=== PATIENT | male | born 1965 | race Caucasian/White ===

== ENCOUNTER 2021-12-26 19:12 | Inpatient (IN) | payer MEDICAID ==
[~2021-12-26] VITALS: Ht 170.2 cm; Wt 76.7 kg
--- NOTE | 2021-12-26 19:23 | NUR ---
LILI Flores FROM [facility] FOR OXYGEN DESATURATION. ARRIVED BY BVM BAGGING TO [facility] AND PLACED ON ER VENT. PT AWAKE AND ALERT X 0 AT BASELINE NO RESPONSE TO STIMULI GCS . PLACED ON MONITOR AND PT TACHYCARDIC BP WNL AND O2 99%. WAS AT BEDSIDE FOR EVAL.
--- NOTE | 2021-12-26 19:26 | NUR ---
18G LH. BLOOD DRAWN AND SENT TO LAB
[2021-12-26] MEDS ORDERED: CEFEPIME 1 GM in IV D5W 50 ML IV ONE (19:30)
[2021-12-26] MEDS ORDERED: VANCOMYCIN 1 GM in IV D5W 250 ML IV ONE (19:30)
--- NOTE | 2021-12-26 19:30 | NUR ---
URINE COLLECTED AND SENT TO LAB
--- NOTE | 2021-12-26 19:37 | NUR ---
XRAY AT BEDSIDE
--- NOTE | 2021-12-26 19:44 | NUR ---
FIO2 80% TV 550 RATE 18 PEEP5
--- NOTE | 2021-12-26 19:49 | NUR ---
RT pt placed on mechanical vent with settings from maikel patrick. pt suctioned via trach. tolerating settings at this time. ambu bag at bedside. clear breath sounds throughout. vent plugged in to red outlet. alarms on and audible. trach secure and patent.
[2021-12-26] MEDS ORDERED: VANCOMYCIN 1 GM VIAL ONE (19:57)
[2021-12-26 20:13] LABS: CALCIUM, SERUM 9.5 mg/dL (8.5-10.1); CARBON DIOXIDE 20 mmol/L (21-32); CHLORIDE 104 mmol/L (98-107); CREATININE 0.9 mg/dL (0.6-1.3); GLUCOSE 129 mg/dL (74-106); POTASSIUM 3.9 mmol/L (3.5-5.1); SODIUM SERUM 139 mmol/L (136-145); UREA NITROGEN, BLOOD 15 mg/dL (7-18)
[2021-12-26 20:25] LABS: ALANINE AMINOTRANSFERASE 42 U/L (12-78); ALBUMIN 3.8 g/dL (3.4-5.0); ALKALINE PHOSPHATASE 126 U/L (46-116); ASPARTATE AMINOTRANSFERASE 17 U/L (15-37); BILIRUBIN,DIRECT 0.3 mg/dL (0.0-0.2); BILIRUBIN,TOTAL 0.9 mg/dL (0.2-1.0); TOTAL PROTEIN, SERUM 8.1 g/dL (6.4-8.2)
[2021-12-26] MEDS ORDERED: IV NS 0.9% 2,000 ML IV ONE (20:30)
[2021-12-26 20:34] LABS: BASOPHILS # (AUTO) 0.1 K/uL (0.0-0.2); BASOPHILS % (AUTO) 0.3 % (0.0-2.0); EOSINOPHILS % (AUTO) 1.7 % (0.0-6.0); HEMATOCRIT 47 % (39-51); HEMOGLOBIN 15.6 g/dL (13.5-17.5); LYMPHOCYTES # (AUTO) 1.5 K/uL (0.8-4.8); LYMPHOCYTES % (AUTO) 6.4 % (20.0-44.0); MEAN CORPUSCULAR HGB CONC 33 g/dl (31.0-36.0); MEAN CORPUSCULAR VOLUME 96 fL (80-96); MONOCYTES # (AUTO) 0.7 K/uL (0.1-1.30); NEUTROPHILS # (AUTO) 21.3 K/uL (1.8-8.9); NEUTROPHILS % (AUTO) 88.6 % (43.0-81.0); PLATELET COUNT (AUTO) 317 K/uL (150-450); RED BLOOD CELL COUNT(AUTO) 4.91 MIL/uL (4.5-6.0)
[2021-12-26 20:35] LABS: BILIRUBIN,URINE NEGATIVE (NEGATIVE); COLOR,URINE YELLOW (YELLOW); LEUKOCYTE ESTERASE ,URINE NEGATIVE (NEGATIVE); NITRITE, URINE NEGATIVE (NEGATIVE); PROTEIN,URINE NEGATIVE (NEGATIVE); UGLUCOSE NEGATIVE (NEGATIVE); UROBILINOGEN,URINE 0.2 EU/dL (0.2)
--- NOTE | 2021-12-26 20:46 | NUR ---
RT AT BEDSIDE FOR ABG
--- NOTE | 2021-12-26 20:53 | NUR ---
ANDREW COLLECTED AND SENT TO LAB
[2021-12-26 20:59] LABS: ABG BASE EXCESS -7.4 mmol/L; ABG PCO2 30.3 mmHg (35.0-45.0); ABG PH 7.356 (7.350-7.450); ABG PO2 357.2 mmHg (75.0-100.0); COHb 0.1 % (0.5-1.5); MetHb 0.7 % (0.0-1.5); O2Hb 98.7 % (94.0-97.0); SITE, ABG Right Radial; VENT MODE, BG AC 18 550 80% +5
[2021-12-26 22:10] LABS: BAND % (MANUAL) 13 % (0.0-5.0); EOSINOPHILS % (MANUAL) 5 % (0-4); LYMPHOCYTES % (MANUAL) 5 % (16-48); MONOCYTES % (MANUAL) 3 % (0-11.0); NEUTROPHILS % (MANUAL) 74 (42-76)
[2021-12-26] MEDS ORDERED: Z GUARD REMEDY 4 OZ OINT TP PRN (22:30)
[2021-12-26] MEDS ORDERED: MORPHINE SULFATE INJ 2 MG/ML DISP.SYRIN IV PRN (22:30)
[2021-12-26] MEDS ORDERED: ONDANSETRON HCL/PF 4 MG/2 ML VIAL IVP PRN (22:30)
[2021-12-26] MEDS ORDERED: ALBUTEROL FS 2.5 MG/0.5 ML VIAL.NEB NEB PRN (22:30)
[2021-12-26] MEDS ORDERED: hydrALAZINE HCL IV 20 MG VIAL IV PRN (22:30)
--- NOTE | 2021-12-26 23:08 | NUR ---
room [id number]
--- NOTE | 2021-12-26 23:17 | NUR ---
report given to gracie lara for ronn
--- NOTE | 2021-12-26 23:47 | NUR ---
SPUTUM SAMPLE COLLECTED FOR CULTURE AND SENT TO LAB
[2021-12-27] MEDS ORDERED: SODIUM BICARBONATE SYR 50 MEQ/50 ML DISP.SYRIN IV ONE
[2021-12-27] MEDS ORDERED: IPRATROPIUM/ALBUTEROL INHALER IH SCH
--- NOTE | 2021-12-27 00:29 | NUR ---
PT TRANSPORTED TO ROOM 104 ON CARDIAC PER [facility] SIN STABLE CONDITION
[2021-12-27] MEDS: IV NS 0.9% 1,000 ML IV SCH ×2 (00:44→17:42)
--- NOTE | 2021-12-27 01:00 | NUR ---
RN OPENING NOTE RECEIVED PT FROM ER NURSE LINO. PT ARRIVED VIA GURNEY AND ADMITTED IN [place] WITH THE DIAGNOSIS OF PNEUMONIA. PT IS VENT DEPENDENT, TOLERATING SETTINGS WELL UPON INITIAL ASSESSMENT. NO S/SX OF ACUTE RESPI DISTRESS AT THIS TIME, NO SOB. BREATHING IS EVEN AND UNLABORED. IV ACCESS IS NOTED IN LEFT HAND, #18g INFUSING NS AT 80 CC/HR. PT HAS RASHES ALL OVER HIS BODY: TUMMY, LOWER LEGS AND BACK AREA. REDNESS NOTED ON HIS LEFT CHEEK. SKIN EXCORIATION NOTED ON HIS SACRUM. FEET ARE CONTRACTED. ALL PHOTOS TAKEN AND PLACED IN PT'S CHART. PT HAS PEG TUBE, INTACT, AND FLUSHES WELL. VS UPON ARRIVAL ARE FOLLOW: TEMP 100.5 HR 119 RR 28 02 100 BP 126/61 GAVE PT TYLENOL ORDERED AND A COLD BATH TO LOWER DOWN PT'S TEMP. WILL REASSESS IN 30 MINUTES. ALL SAFETY MEASURES IN PLACE: BED LOCKED IN LOW POSITION, BED ALARM ON, SR UP X2, CALL LIGHT WITHIN REACH. GAVE PT A COLD BATH AND TYLENOL VIA PEG TUBE.
[2021-12-27] MEDS: ACETAMINOPHEN 325 MG TABLET PO PRN (01:26)
[2021-12-27] MEDS: IPRATROPIUM NEB FS 0.5 MG/2.5 ML AMPUL.NEB IH SCH ×4 (02:56→20:42)
[2021-12-27] MEDS: ALBUTEROL FS 2.5 MG/0.5 ML VIAL.NEB NEB SCH ×4 (02:56→20:42)
[2021-12-27 04:00] VITALS: BP 91/44
[2021-12-27 05:14] LABS: ABG BASE EXCESS -2.7 mmol/L; ABG OXYGEN SATURATION 98.6 % (92.0-98.5); ABG PH 7.429 (7.350-7.450); ABG PO2 159.2 mmHg (75.0-100.0); AaDO2 161.3 mmHg; COHb 0.2 % (0.5-1.5); MetHb 0.4 % (0.0-1.5); SITE, ABG Right Radial; VENT MODE, BG AC 18 550 50% +5
[2021-12-27 05:56] LABS: BASOPHILS % (AUTO) 0.2 % (0.0-2.0); EOSINOPHILS % (AUTO) 0.3 % (0.0-6.0); HEMATOCRIT 38 % (39-51); HEMOGLOBIN 12.8 g/dL (13.5-17.5); LYMPHOCYTES # (AUTO) 1.4 K/uL (0.8-4.8); MEAN CORPUSCULAR HGB CONC 34 g/dl (31.0-36.0); MEAN CORPUSCULAR VOLUME 95 fL (80-96); MONOCYTES % (AUTO) 5.5 % (2.0-12.0); NEUTROPHILS # (AUTO) 15.2 K/uL (1.8-8.9); PLATELET COUNT (AUTO) 212 K/uL (150-450); RED BLOOD CELL COUNT(AUTO) 4.03 MIL/uL (4.5-6.0); WHITE BLOOD COUNT (AUTO) 17.7 K/uL (4.3-11.0)
--- NOTE | 2021-12-27 06:35 | NUR ---
RN NOTE PT FEVER WENT DOWN TO 98.8. ALL OTHER VS STABLE. TELE MONITOR SHOWS SR, O2 SAT >97%. NO SIGNS OF ACUTE RESPI DISTRESS. WILL ENDORSE TO AM SHIFT NURSE FOR HI.
[2021-12-27 06:41] LABS: CALCIUM, SERUM 8.5 mg/dL (8.5-10.1); CREATININE 0.8 mg/dL (0.6-1.3); PHOSPHORUS 2.6 mg/dL (2.5-4.9); POTASSIUM 3.5 mmol/L (3.5-5.1); TOTAL PROTEIN, SERUM 6.6 g/dL (6.4-8.2)
[2021-12-27 08:00] VITALS: BP 110/46
[2021-12-27] MEDS ORDERED: BISA10SU11 RC (08:07)
[2021-12-27] MEDS ORDERED: LEVE1000 GT (08:07)
[2021-12-27] MEDS ORDERED: OMEG1600 GT (08:07)
[2021-12-27] MEDS ORDERED: HEPARIN SUBCUT (08:07)
[2021-12-27] MEDS ORDERED: CLON0.1T GT (08:07)
[2021-12-27] MEDS ORDERED: MAGN400O6 GT (08:07)
[2021-12-27] MEDS ORDERED: NA P133E RC (08:07)
[2021-12-27] MEDS ORDERED: LACT250L14 GT (08:08)
[2021-12-27] MEDS: HEPARIN SODIUM, PORCINE 5000 UNITS/1 ML VIAL SQ SCH ×2 (09:02→20:26)
[2021-12-27] MEDS: VANCOMYCIN 1 GM in IV D5W 250ml IV SCH ×3 (09:33→23:36)
[2021-12-27 12:00] VITALS: BP 106/52
[2021-12-27 12:09] LABS: BAND % (MANUAL) 20 % (0.0-5.0); LYMPHOCYTES % (MANUAL) 8 % (16-48); MONOCYTES % (MANUAL) 8 % (0-11.0); NEUTROPHILS % (MANUAL) 64 (42-76)
[2021-12-27] MEDS: CEFEPIME 2 GM in IV D5W 100 ML IV SCH ×2 (12:31→20:24)
[2021-12-27] MEDS: JEVITY 1.2 CAL 1,000 ML BOTTLE GT PRN (15:18)
[2021-12-27 16:00] VITALS: BP 96/42
--- NOTE | 2021-12-27 19:01 | NUR ---
RN NOTE PT RESTING IN BED, TRACH IN PLACE WITH VENT SETTINGS TOLERATED WELL. PT OBTUNDED. INCONTINENT. WITH IV ACCESS ON L HAND G18. IVF NS@80/HR, TOLERATING WELL. DUE MEDS GIVEN. AM/PM CARE RENDERED. WILL CONT TO MONITOR.
[2021-12-27 20:00] VITALS: BP 125/74
--- NOTE | 2021-12-27 20:00 | NUR ---
RN OPENING NOTE RECEIVED PT IN BED NON VERBAL . ON VENTILATOR DEPENDENT AC SETTINGS WELL TOLERATED BY PTS. V/S STABLE AFEBRILE NO SOB NO DISTRESS NOTED . BREATHING IS EVEN AND UNLABORED. IV ACCESS IS NOTED IN LEFT HAND, #18g INFUSING NS AT 80 CC/HR. RIGHT AC g20 INSERTED INTACT AND PATENT . PT HAS PEG TUBE, JEVITY AT 65CC/HR INFUSING WELL .TURNED AND REPOSITION , SUCTION SECRETION Q 2 HRS AND PRN . PTS CONTINUE ON IV ATB NO ASE, ALL NEEDS ATTENDED TOO CALL LIGHT WITHIN REACH WILL CONTINUE TO MONITOR PTS.
[2021-12-28] VITALS: BP 134/57
[2021-12-28] MEDS: IPRATROPIUM NEB FS 0.5 MG/2.5 ML AMPUL.NEB IH SCH ×4 (01:41→20:12)
[2021-12-28] MEDS: ALBUTEROL FS 2.5 MG/0.5 ML VIAL.NEB NEB SCH ×4 (01:41→20:12)
[2021-12-28 04:00] VITALS: BP 132/65
[2021-12-28] MEDS: CEFEPIME 2 GM in IV D5W 100 ML IV SCH ×3 (04:48→20:29)
--- NOTE | 2021-12-28 06:19 | NUR ---
manager of internal otes Pts remains in bed on tele vent trached pts settings tolerated continue on iv atb , pts is hardstick tried multiple time md made aware pts for midline insertion will endorse to rn day shift for continuity of care .no sob no distress noted .
--- NOTE | 2021-12-28 07:17 | NUR ---
RN OPENING NOTE RECEIVED PT IN BED NON VERBAL . ON VENTILATOR DEPENDENT AC SETTINGS WELL TOLERATED BY PTS. NO SOB NO DISTRESS NOTED . BREATHING IS EVEN AND UNLABORED. IV ACCESS IS NOTED IN LEFT HAND, #18g INFUSING NS ON TKO. RIGHT AC g20 INSERTED INTACT AND PATENT . PT HAS PEG TUBE, JEVITY AT 65CC/HR INFUSING WELL.
[2021-12-28 08:00] VITALS: BP 141/84
[2021-12-28 08:19] LABS: CALCIUM, SERUM 8.5 mg/dL (8.5-10.1); CREATININE 0.6 mg/dL (0.6-1.3); POTASSIUM 3.2 mmol/L (3.5-5.1)
[2021-12-28] MEDS: HEPARIN SODIUM, PORCINE 5000 UNITS/1 ML VIAL SQ SCH ×2 (08:56→20:30)
[2021-12-28] MEDS: VANCOMYCIN 1 GM in IV D5W 250ml IV SCH ×3 (10:05→23:06)
[2021-12-28 12:00] VITALS: BP 156/72
[2021-12-28] MEDS: POTASSIUM CHLORIDE 20 MEQ POWDER PACKET PO SCH ×2 (12:01→13:03)
[2021-12-28] MEDS: JEVITY 1.2 CAL 1,000 ML BOTTLE GT PRN (13:07)
[2021-12-28 16:00] VITALS: BP 148/79
--- NOTE | 2021-12-28 18:49 | NUR ---
RN CLOSING NOTE PATIENT REMAINS IN BED, OBTUNDED ON MECHANICAL VENTS SETTING PRESCRIBED. NO CURRENT SINGS OF SOB OR DISTRESS NOTED. IV ACCESS ON RIGHT UPPER ARM MIDLINE 18G SL. SAFETY MEASURES IN PLACE. WILL ENDORSE TO NIGHT NURSE FOR HI.
[2021-12-28 20:00] VITALS: BP 135/98
--- NOTE | 2021-12-28 20:00 | NUR ---
MELTING OPERATOR OPENING NOTE RECEIVED PT IN BED NON VERBAL . ON VENTILATOR DEPENDENT AC SETTINGS WELL TOLERATED BY PTS. V/S STABLE AFEBRILE NO SOB NO DISTRESS NOTED . BREATHING IS EVEN AND UNLABORED. IV ACCESS IS NOTED ON RIGHT UPPER ARM MIDLINE g#18, INTACT AND PATENT. PT ON GT FEEDING, JEVITY AT 65CC/HR INFUSING WELL .TURNED AND REPOSITION , SUCTION SECRETION Q 2 HRS AND PRN . PTS CONTINUE ON IV ATB NO ASE, ALL NEEDS ATTENDED TOO CALL LIGHT WITHIN REACH WILL CONTINUE TO MONITOR PTS.
--- NOTE | 2021-12-28 22:36 | NUR ---
RT NOTE Received pt on ordered vent settings. Tolerating with an SPO2 of 99%. Q6 neb tx given and tolerated with no adverse reaction. Suctioned x2. Trach patent and secure. Alarms are on and audible. Vent plugged into red outlet.
[2021-12-29] VITALS: BP 119/65
[2021-12-29] MEDS: IPRATROPIUM NEB FS 0.5 MG/2.5 ML AMPUL.NEB IH SCH ×4 (01:31→20:30)
[2021-12-29] MEDS: ALBUTEROL FS 2.5 MG/0.5 ML VIAL.NEB NEB SCH ×4 (01:31→20:31)
[2021-12-29 04:00] VITALS: BP 126/65
[2021-12-29] MEDS: CEFEPIME 2 GM in IV D5W 100 ML IV SCH ×3 (04:56→20:17)
[2021-12-29] MEDS: JEVITY 1.2 CAL 1,000 ML BOTTLE GT PRN (05:08)
--- NOTE | 2021-12-29 06:22 | NUR ---
burn center nurse otes Pts remains in bed on tele vent trached pts settings tolerated continue on iv atb , on right upper arm G18 midline intact and patent . will endorse to rn day shift for continuity of care .no sob no distress noted .
[2021-12-29 06:46] LABS: CALCIUM, SERUM 8.8 mg/dL (8.5-10.1); CREATININE 0.6 mg/dL (0.6-1.3)
--- NOTE | 2021-12-29 07:34 | NUR ---
network/telecom engineer note patient in bed , with trach to vent setting as ordered , obtunded, on tele monitor sr hr 94, with g tube feeding as ordered keep hob elevated at all time, rt upper arm mid line in place no sob noted at this time, bed in lowest and locked position , call light within reach , safety measure observed, will cont to monitor
--- NOTE | 2021-12-29 07:52 | NUR ---
fio2 decreased from 50% to 40% due to 100% spo2 Addendum: 12/29/21 at 0753 by ALEN MALDONADO RT Amended: Links added.
[2021-12-29 08:00] VITALS: BP 121/99
[2021-12-29] MEDS: HEPARIN SODIUM, PORCINE 5000 UNITS/1 ML VIAL SQ SCH ×2 (08:03→20:19)
[2021-12-29] MEDS: VANCOMYCIN 1 GM in IV D5W 250ml IV SCH ×2 (08:03→16:29)
--- NOTE | 2021-12-29 09:14 | NUR ---
telephone worker note per rt fIO2 changed to 40% SATURATION 99% AT THIS TIME
--- NOTE | 2021-12-29 11:30 | NUR ---
radiotelephone operator note rounds made. with trach to vent setting trach, suction done , not in distress
[2021-12-29 12:00] VITALS: BP 130/95
--- NOTE | 2021-12-29 15:13 | NUR ---
PRESIDENTIAL HELICOPTER CREW CHIEF NOTES NOTED JAYLEEN SWOLLEN BELOW THE MIDLINE, INFORMED Kunal ZABALA DNP, WITH ORDER TO REPLACE MIDLINE TO OTHER ARM. LINE CHECK, CHARGE NURSE AT BEDSIDE, NO BLOOD BACK FLOW, FLUSHES WELL, PER CHARGE NURSE WILL KEEP THE MIDLINE, RIGHT UPPER ARM ELEVATED WITH PILLOW. PATIENT INCONTINENT TO BLADDER, CONDOM CATH PLACED PER Kunal ZABALA DNP ORDER. WILL CONTINUE TO MONITOR. Addendum: 12/29/21 at 1548 by MICHELLE SCHMIDT RN PATIENT CAME WITH SACRUM REDNESS AND EXCORIATION, WOUND CONSULT ORDER.
--- NOTE | 2021-12-29 15:44 | NUR ---
PERSONAL COUNSELOR NOTES NOTED PATIENT WITH A HISTORY OF SEIZURE. NOTED PATIENT ON KEPPRA 1000MG PER GT Q 12 HOURS FROM MEDICATION RECONCILIATION, INFORMED BECKA ZABALA DNP, WITH ORDER TO START KEPPRA 1000MG PER GT Q12 HRS.
[2021-12-29 16:00] VITALS: BP 128/80
--- NOTE | 2021-12-29 18:39 | NUR ---
EVALUATION SPECIALIST CLOSING NOTED PATIENT in bed with trach to vent setting as ordered , obtunded, on tele monitor from sr-sinus tachy, hr=99-101, with g tube patent and intact, flushes well, feeding as ordered keep hob elevated at all time, rt upper arm mid line in place, patent and intact. no sob noted at this time, bed in lowest and locked position , call light within reach , safety measure observed, will endorse to night nurse for ronn.
--- NOTE | 2021-12-29 19:30 | NUR ---
AMBULANCE OFFICER OPENING NOTE RECEIVED REPORT FROM KIRSTEN FOR HI. PT IN BED, OBTUNDED AND NON VERBAL. VENTILATOR DEPENDENT, AC SETTINGS WELL TOLERATED BY PT. NO SOB, NO S/SX OF ACUTE DISTRESS NOTED AT THIS TIME. BREATHING IS EVEN AND UNLABORED. TELE MONITOR SHOWS ST WITH HR >100 BPM, SATING AT 99%. IV ACCESS IS NOTED ON RIGHT UPPER ARM MIDLINE #18g, INTACT AND PATENT. PT ON GT FEEDING, JEVITY AT 65 CC/HR, INFUSING WELL. CONDOM CATH NOTED, DRAINING URINE BY GRAVITY. ALL SAFETY MEASURES IN PLACE: BED LOCKED IN LOW POSITION, BED ALARM ON. SR UP X2, CALL LIGHT WITHIN REACH. WILL CONTINUE TO MONITOR PT.
[2021-12-29 20:00] VITALS: BP 124/67
[2021-12-29] MEDS: LEVETIRACETAM SOL (5 ML) 100 MG/ML UDC GT SCH (20:17)
[2021-12-29] MEDS: ACETAMINOPHEN 325 MG TABLET PO PRN (20:41)
--- NOTE | 2021-12-29 20:45 | NUR ---
RN NOTE PT NOTED TO HAVE LOW GRADE FEVER AT 99.8. ALL OTHER VS STABLE. TYLENOL GIVEN ORDERED. WILL CONTINUE TO MONITOR PT CLOSELY.
[2021-12-29] MEDS: VANCOMYCIN 1.25 GM in IV D5W 250 ML IV SCH (23:35)
[2021-12-30] VITALS: BP 123/71
[2021-12-30] MEDS: JEVITY 1.2 CAL 1,000 ML BOTTLE GT PRN ×2 (00:06→16:09)
[2021-12-30] MEDS: IPRATROPIUM NEB FS 0.5 MG/2.5 ML AMPUL.NEB IH SCH ×4 (01:38→20:32)
[2021-12-30] MEDS: ALBUTEROL FS 2.5 MG/0.5 ML VIAL.NEB NEB SCH ×4 (01:38→20:32)
[2021-12-30 04:00] VITALS: BP 139/86
[2021-12-30] MEDS: CEFEPIME 2 GM in IV D5W 100 ML IV SCH ×3 (04:19→20:33)
--- NOTE | 2021-12-30 05:38 | NUR ---
RN CLOSING NOTE PT REMAINED STABLE THROUGHOUT THE NIGHT. NO RESPI DISTRESS NOTED. TELE MONITOR SHOWS SR-ST WITH HR >100 BPM. O2 SAT 100%. . ALL DUE MEDS GIVEN. NEEDS ATTENDED TO. KEPT PT CLEAN AND DRY. CONDOM CATH REPLACED. WILL ENDORSE TO AM SHIFT NURSE FOR HI.
[2021-12-30 07:10] LABS: BASOPHILS # (AUTO) 0.1 K/uL (0.0-0.2); BASOPHILS % (AUTO) 0.6 % (0.0-2.0); EOSINOPHILS % (AUTO) 11.4 % (0.0-6.0); HEMATOCRIT 38 % (39-51); HEMOGLOBIN 13.2 g/dL (13.5-17.5); LYMPHOCYTES # (AUTO) 1.3 K/uL (0.8-4.8); LYMPHOCYTES % (AUTO) 13.8 % (20.0-44.0); MEAN CORPUSCULAR HGB CONC 35 g/dl (31.0-36.0); MEAN CORPUSCULAR VOLUME 94 fL (80-96); MONOCYTES # (AUTO) 0.7 K/uL (0.1-1.30); NEUTROPHILS # (AUTO) 6.3 K/uL (1.8-8.9); NEUTROPHILS % (AUTO) 67.2 % (43.0-81.0); PLATELET COUNT (AUTO) 216 K/uL (150-450); RED BLOOD CELL COUNT(AUTO) 4.08 MIL/uL (4.5-6.0); WHITE BLOOD COUNT (AUTO) 9.4 K/uL (4.3-11.0)
[2021-12-30 07:30] LABS: CALCIUM, SERUM 9.1 mg/dL (8.5-10.1); CREATININE 0.6 mg/dL (0.6-1.3); PHOSPHORUS 2.9 mg/dL (2.5-4.9); POTASSIUM 4.2 mmol/L (3.5-5.1)
--- NOTE | 2021-12-30 07:30 | NUR ---
PILOT CAPTAIN OPEN NOTE PATIENT in bed with trach to vent setting as ordered , obtunded, on tele monitor from sr-sinus tachy, hR 116, with g tube patent and intact, flushes well, feeding as ordered keep hob elevated at all time, rt upper arm mid line in place, patent and intact. no sob noted at this time, bed in lowest and locked position , call light within reach , safety measure observed, will endorse to night nurse for ronn.
[2021-12-30] MEDS: LEVETIRACETAM SOL (5 ML) 100 MG/ML UDC GT SCH ×2 (07:59→20:33)
[2021-12-30 08:00] VITALS: BP_SYST 139; BP_DIAS 76; BP_DIAS 86
[2021-12-30] MEDS: HEPARIN SODIUM, PORCINE 5000 UNITS/1 ML VIAL SQ SCH ×2 (08:01→20:36)
[2021-12-30] MEDS: VANCOMYCIN 1.25 GM in IV D5W 250 ML IV SCH ×2 (08:24→14:58)
--- NOTE | 2021-12-30 08:47 | NUR ---
WOUND CARE CONSULT: PT PRESENTS WITH EDEMA WHICH IS GENERALIZED AND AREAS OF SKIN DISCOLORATION, LEFT ANKLE FRAGILE SCARRING (FEET CONTRACTED), SCALP SKIN CONDITION AND SACRAL INTACT DEEP TISSUE INJURY WITH SCARRING AND INCONTINENCE ASSOCIATED SKIN DAMAGE, PRESENT ON ADMISSION. PT IS INCONTINENT OF URINE AND STOOL. CONDOM CATH NOTED TO BE LEAKING. DISCUSSED SKIN PROTECTION WITH NURSING STAFF. PT IS ON LUIS EDUARDO ISOFLEX LOW AIRLOSS BED. DR BRAUN NOTIFIED OF SURGICAL CONSULT REQUEST. MD IN AGREEMENT WITH PLAN OF CARE.
[2021-12-30 09:57] LABS: BAND % (MANUAL) 2 % (0.0-5.0); EOSINOPHILS % (MANUAL) 14 % (0-4); LYMPHOCYTES % (MANUAL) 12 % (16-48); MONOCYTES % (MANUAL) 10 % (0-11.0); NEUTROPHILS % (MANUAL) 62 (42-76)
[2021-12-30 12:00] VITALS: BP 129/76
[2021-12-30 16:00] VITALS: BP 133/62
--- NOTE | 2021-12-30 18:25 | NUR ---
PACKAGE DELIVERY DRIVER closing NOTE PT IN BED, OBTUNDED AND NON VERBAL. VENTILATOR DEPENDENT, AC SETTINGS WELL TOLERATED BY PT. NO SOB, NO S/SX OF ACUTE DISTRESS NOTED AT THIS TIME. BREATHING IS EVEN AND UNLABORED. TELE MONITOR SHOWS ST WITH HR >100 BPM, SATING AT 99%. IV ACCESS IS NOTED ON RIGHT UPPER ARM MIDLINE #18g, INTACT AND PATENT. PT ON GT FEEDING, JEVITY AT 65 CC/HR, INFUSING WELL. CONDOM CATH NOTED, DRAINING URINE BY GRAVITY. ALL SAFETY MEASURES IN PLACE: BED LOCKED IN LOW POSITION, BED ALARM ON. SR UP X2, CALL LIGHT WITHIN REACH.
--- NOTE | 2021-12-30 19:30 | NUR ---
EDGE BANDER HAND OPENING NOTE RECEIVED REPORT FROM MARK FOR HI. PT IN BED, OBTUNDED AND NON VERBAL. VENTILATOR DEPENDENT, AC SETTINGS WELL TOLERATED BY PT. NO SOB, NO S/SX OF ACUTE DISTRESS NOTED AT THIS TIME. BREATHING IS EVEN AND UNLABORED. TELE MONITOR SHOWS ST WITH HR >100 BPM, SATING AT 100%. IV ACCESS NOTED ON RIGHT UPPER ARM MIDLINE #18g, INTACT AND PATENT. PT ON GT FEEDING, JEVITY AT 65 CC/HR, INFUSING WELL. CONDOM CATH NOTED, DRAINING URINE BY GRAVITY. ALL SAFETY MEASURES IN PLACE: BED LOCKED IN LOW POSITION, BED ALARM ON. SR UP X2, CALL LIGHT WITHIN REACH. WILL CONTINUE TO MONITOR PT.
[2021-12-30 20:00] VITALS: BP 148/77
[2021-12-31] VITALS: BP 145/82
[2021-12-31] MEDS: ALBUTEROL FS 2.5 MG/0.5 ML VIAL.NEB NEB SCH ×4 (01:35→20:16)
[2021-12-31] MEDS: IPRATROPIUM NEB FS 0.5 MG/2.5 ML AMPUL.NEB IH SCH ×4 (01:35→20:16)
[2021-12-31 04:00] VITALS: BP 126/75
[2021-12-31] MEDS: CEFEPIME 2 GM in IV D5W 100 ML IV SCH ×3 (04:04→21:18)
--- NOTE | 2021-12-31 05:44 | NUR ---
RN NOTE PT REMAINED STABLE T/O THE NIGHT. PT IS ST ON TELE MONITOR WITH HR >100 BPM. O2 SAT AT 98-100%. ALL DUE MEDS GIVEN. PT CLEANED, TURNED AND REPOSITIONED. WILL ENDORSE TO AM SHIFT NURSE FOR HI.
--- NOTE | 2021-12-31 07:00 | NUR ---
RN NOTE RECEIVED PT ON BED, VENT/ TRACH, DEPENDENT , TOLERAING VENT SETTING WELL, O2 SAT WNL, RESPONDS TO VERBAL STIMULI, PT IN BED, VENTILATOR DEPENDENT, NO SOB, NO S/SX OF ACUTE DISTRESS NOTED AT THIS TIME. BREATHING IS EVEN AND UNLABORED. TELE MONITOR SHOWS ST WITH HR IN 100'S, IV ACCESS NOTED ON RIGHT UPPER ARM MIDLINE, INTACT AND PATENT. PT ON GT FEEDING, JEVITY AT 65 CC/HR, INFUSING WELL. CONDOM CATH NOTED, DRAINING URINE BY GRAVITY. ALL SAFETY MEASURES IN PLACE: BED LOCKED IN LOW POSITION, BED ALARM ON. SR UP X3, CALL LIGHT WITHIN REACH. WILL CONTINUE TO MONITOR PT.
[2021-12-31 07:06] LABS: BASOPHILS # (AUTO) 0.1 K/uL (0.0-0.2); BASOPHILS % (AUTO) 0.5 % (0.0-2.0); EOSINOPHILS % (AUTO) 11.2 % (0.0-6.0); HEMATOCRIT 38 % (39-51); HEMOGLOBIN 12.2 g/dL (13.5-17.5); LYMPHOCYTES # (AUTO) 2.1 K/uL (0.8-4.8); LYMPHOCYTES % (AUTO) 16.6 % (20.0-44.0); MEAN CORPUSCULAR HGB CONC 33 g/dl (31.0-36.0); MEAN CORPUSCULAR VOLUME 97 fL (80-96); MONOCYTES % (AUTO) 8.2 % (2.0-12.0); NEUTROPHILS # (AUTO) 7.9 K/uL (1.8-8.9); NEUTROPHILS % (AUTO) 63.5 % (43.0-81.0); PLATELET COUNT (AUTO) 177 K/uL (150-450); RED BLOOD CELL COUNT(AUTO) 3.86 MIL/uL (4.5-6.0); WHITE BLOOD COUNT (AUTO) 12.5 K/uL (4.3-11.0)
--- NOTE | 2021-12-31 07:50 | NUR ---
RN NOTES PHARMACY NOTIFED REGARDING VANCO TROUGH 23 , OK TO GIVE 8 AM VANCO PER PHARMACY , MED IS ALREADY READJUSTED PER PHARMACY.
[2021-12-31 08:00] VITALS: BP 132/80
[2021-12-31 08:40] LABS: CREATININE 0.6 mg/dL (0.6-1.3); MAGNESIUM 2.1 mg/dL (1.8-2.4); PHOSPHORUS 3.8 mg/dL (2.5-4.9); POTASSIUM 3.8 mmol/L (3.5-5.1)
[2021-12-31] MEDS: VANCOMYCIN 1.25 GM in IV D5W 250 ML IV SCH ×3 (08:44)
[2021-12-31] MEDS: PROSOURCE / PROSTAT (PYXIS) 30 ML UDC GT SCH (08:45)
[2021-12-31] MEDS: LEVETIRACETAM SOL (5 ML) 100 MG/ML UDC GT SCH ×2 (08:45→21:19)
[2021-12-31] MEDS: HEPARIN SODIUM, PORCINE 5000 UNITS/1 ML VIAL SQ SCH ×2 (08:46→21:20)
[2021-12-31 12:00] VITALS: BP 143/85
--- NOTE | 2021-12-31 12:00 | NUR ---
RN NOTES TRACH CARE AND SUCTIONING DONE, VSS STABLE , CONTINUE TO MONITOR .
[2021-12-31] MEDS: JEVITY 1.2 CAL 1,000 ML BOTTLE GT PRN (12:46)
[2021-12-31 16:00] VITALS: BP 122/67
--- NOTE | 2021-12-31 18:08 | NUR ---
RN NOTES NO SIGNIFICANT CHANGES NOTED ON THIS SHIFT, TRACH SUCTION DONE PRN, PT TOLERATING TF WELL, WILL ENDORSE TO PLANNING TECHNICIAN NURSE FOR CONTINUITY OF CARE .
--- NOTE | 2021-12-31 19:55 | NUR ---
FINANCE CLERK OPENING NOTE PATIENT IN BED WITH EYES CLOSED, OBTUNDED, NON-VERBAL. PATIENT ON MECHANICAL VENT, TOLERATING WELL, NO S/S OF DISTRESS OR SOB NOTED, BREATHING EVEN AND UNLABORED, SPO2: 100%. PATIENT ON EXTERNAL DENTAL ASSOCIATE READING SINUS RHYTHM, HR: 100. PATIENT ON GT FEEDING JEVITY 1.2 INFUSING @ 65 ML/HR. JAYLEEN MIDLINE INTACT AND PATENT, NO IVF INFUSING. SAFETY MEASURES IN PLACE: CALL LIGHT WITHIN REACH, SIDE RAILS UP X 3, BED LOCKED IN LOWEST POSITION, BED ALARM ON. WILL CONTINUE TO MONITOR PATIENT
[2021-12-31 20:00] VITALS: BP 140/84
[2021-12-31] MEDS: VANCOMYCIN 1 GM in IV D5W 250 ML IV SCH (22:53)
[2022-01-01] VITALS: BP 151/89
[2022-01-01] MEDS: ALBUTEROL FS 2.5 MG/0.5 ML VIAL.NEB NEB SCH ×4 (01:50→20:15)
[2022-01-01] MEDS: IPRATROPIUM NEB FS 0.5 MG/2.5 ML AMPUL.NEB IH SCH ×4 (01:50→20:15)
[2022-01-01 04:25] VITALS: BP 126/72
[2022-01-01] MEDS: CEFEPIME 2 GM in IV D5W 100 ML IV SCH ×3 (05:29→20:47)
[2022-01-01 06:24] LABS: BASOPHILS % (AUTO) 0.4 % (0.0-2.0); EOSINOPHILS % (AUTO) 9.6 % (0.0-6.0); HEMATOCRIT 41 % (39-51); HEMOGLOBIN 13.5 g/dL (13.5-17.5); LYMPHOCYTES # (AUTO) 2.1 K/uL (0.8-4.8); LYMPHOCYTES % (AUTO) 17.4 % (20.0-44.0); MEAN CORPUSCULAR HGB CONC 33 g/dl (31.0-36.0); MEAN CORPUSCULAR VOLUME 96 fL (80-96); MONOCYTES # (AUTO) 0.8 K/uL (0.1-1.30); MONOCYTES % (AUTO) 6.9 % (2.0-12.0); NEUTROPHILS # (AUTO) 7.9 K/uL (1.8-8.9); NEUTROPHILS % (AUTO) 65.7 % (43.0-81.0); PLATELET COUNT (AUTO) 261 K/uL (150-450); RED BLOOD CELL COUNT(AUTO) 4.24 MIL/uL (4.5-6.0); WHITE BLOOD COUNT (AUTO) 12.1 K/uL (4.3-11.0)
--- NOTE | 2022-01-01 06:51 | NUR ---
TELEGRAPHIC TYPEWRITER REPAIRER CLOSING NOTE PATIENT SLEEPING IN BED, OBTUNDED, NON-VERBAL. PATIENT ON MECHANICAL VENT, TOLERATING WELL, NO S/S OF DISTRESS OR SOB NOTED, BREATHING EVEN AND UNLABORED, SPO2: 100%. PATIENT ON EXTERNAL CONTRACT MAIL CARRIER READING SINUS TACHY, HR: 113. PATIENT ON GT FEEDING INFUSING JEVITY 1.2 @ 65 ML/HR. JAYLEEN MIDLINE INTACT AND PATENT, SALINE LOCKED. MEDICATIONS GIVEN ORDERED, PT NEEDS MET THROUGHOUT SHIFT, PT TURNED Q2H, WOUND CARE PROVIDED. PLACED CONDOM CATH THIS AM. PATIENT NOTED WITH LEFT HAND BLISTER, PHOTO TAKEN AND WOUND CONSULT ORDERED. SAFETY MEASURES IN PLACE: CALL LIGHT WITHIN REACH, SIDE RAILS UP X 3, BED LOCKED IN LOWEST POSITION, BED ALARM ON. WILL ENDORSE TO DAY SHIFT NURSE FOR CONTINUITY OF CARE
[2022-01-01 07:09] LABS: CALCIUM, SERUM 9.7 mg/dL (8.5-10.1); CREATININE 0.6 mg/dL (0.6-1.3); MAGNESIUM 2.2 mg/dL (1.8-2.4); PHOSPHORUS 3.6 mg/dL (2.5-4.9)
--- NOTE | 2022-01-01 07:20 | NUR ---
RN NOTE RECEIVED PATIENT IN BED RESTING OBTUNDED,NON VERBAL EYES OPEN ON MECHANICAL VENT SETTING PRESCRIBED,ON G-TUBE FEEDING JEVITY 1.2 65CC/HR CHECKED PLACEMENT,IN PLACE NO RESIDUAL NOTED,HEAD OF THE BED ELEVATED,INCONTINENT BOWEL/BLADDER,IV SITE IS ON RIGHT UPPER ARM MIDLINE INTACT PATENT,BILATERAL UPPER EXTERMINATES EDEMA,SAFETY MEASURE IMPLEMENT BED IN LOW POSITION AND LOCKED CONTINUE TO MONITOR.
[2022-01-01 08:00] VITALS: BP 138/75
[2022-01-01] MEDS: PROSOURCE / PROSTAT (PYXIS) 30 ML UDC GT SCH (08:10)
[2022-01-01] MEDS: LEVETIRACETAM SOL (5 ML) 100 MG/ML UDC GT SCH ×2 (08:10→20:48)
[2022-01-01] MEDS: HEPARIN SODIUM, PORCINE 5000 UNITS/1 ML VIAL SQ SCH ×2 (08:12→20:57)
[2022-01-01] MEDS: VANCOMYCIN 1 GM in IV D5W 250 ML IV SCH ×2 (09:48→22:06)
[2022-01-01 12:00] VITALS: BP 159/79
[2022-01-01 15:29] LABS: EOSINOPHILS % (MANUAL) 10 % (0-4); LYMPHOCYTES % (MANUAL) 20 % (16-48); MONOCYTES % (MANUAL) 10 % (0-11.0); NEUTROPHILS % (MANUAL) 60 (42-76)
[2022-01-01 16:00] VITALS: BP 134/71
--- NOTE | 2022-01-01 19:05 | NUR ---
RN NOTE PATIENT REMANS OBTUNDED ON MECHANICAL VENT ON G-TUBE FEEDING NO SOB NOT ACUTE DISTRESS NOTED,ALL DUE MEDS GIVEN MD ORDERED KEPT CLEAN AND DRY ALL THE TIME,TURNED AND REPOSITIONED EVERY 2 HOURS ALL NEEDS MET,ENDORSE NEXT COMING SHIFT FOR CONTINUATION OF CARE
--- NOTE | 2022-01-01 19:26 | NUR ---
noc rn opening received patient in bed, obtunded. no s/s of apparent distress-- mech vent dependent. not exhibiting pain via flacc. tele monitor reading st with 101 bpm.. g-tube feeding running Jevity 1.2 @65mls/hr. val midline iv access on saline lock. patient in diaper. safety in place. will continue with patient's plan of care.
[2022-01-01 20:00] VITALS: BP 136/73
--- NOTE | 2022-01-01 20:19 | NUR ---
RCVD PT TRACHED WITH PORTEX 9 ON VENT WITH THE SETTINGS OF AC 18,,VT 550, PEEP 5, FIO2 40%. PT IS OBTUNDED. BREATHING TX GIVEN PER MD'S ORDER. NO ADVERSE REACTION NOTED . SUCTIONED SMALL AMOUNT OF KNIGHT THICK SECRETIONS. VENT PLUGGED INTO RED OUTLET, VENT ALARMS ON AND AUDIBLE. WILL CONTINUE TO MONITOR T/O SHIFT.
[2022-01-01] MEDS: JEVITY 1.2 CAL 1,000 ML BOTTLE GT PRN (23:58)
[2022-01-02] VITALS: BP 146/86
[2022-01-02] MEDS: ALBUTEROL FS 2.5 MG/0.5 ML VIAL.NEB NEB SCH ×4 (01:24→20:12)
[2022-01-02] MEDS: IPRATROPIUM NEB FS 0.5 MG/2.5 ML AMPUL.NEB IH SCH ×4 (01:24→20:12)
[2022-01-02 04:00] VITALS: BP 134/83
[2022-01-02] MEDS: CEFEPIME 2 GM in IV D5W 100 ML IV SCH ×3 (04:45→21:07)
--- NOTE | 2022-01-02 06:27 | NUR ---
noc rn closing patient in bed with eyes closed, easy to arouse. no s/s of apparent distress mech vent dependent. not exhibiting pain via flacc. remains afebrile this am with temp. of 98.4f. jevity running @65 mls/hr-- tolerating well. all needs attended. all sched meds administered. safety kept in place the whole shift. will endorse to morning shift rn for continuity of patient care.
[2022-01-02 07:17] LABS: CALCIUM, SERUM 9.3 mg/dL (8.5-10.1); CREATININE 0.6 mg/dL (0.6-1.3); POTASSIUM 4.3 mmol/L (3.5-5.1)
--- NOTE | 2022-01-02 07:20 | NUR ---
WATER TESTER OPENING NOTE RECEIVED PATIENT IN BED WITH EYES CLOSED AND OBTUNDED, NONVERBAL.PATIENT IS ON MECHANICAL WITH ORDERED VENT SETTINGS TOLERATING WELL. NO SIGNS OF PAIN, DISCOMFORT OR RESPIRATORY DISTRESS. PATIENT IS ON EXTERNAL PROSTHODONTIST READING SINUS RHTYM. PATIENT OXYGEN SATURATING AT 100%. PATIENT ON GTUBE FEEDING JEVITY 1.2 RUNNING AT 65ML/HR.PATIENT HAS RIGHT UPPER ARM MIDLINE.SKIN INTACT AND PATENT. ALL SAFETY MEASURES IN PLACE. CALL LIGHT WITHIN REACH. SIDE RAILS UP X2.BED LOCKED IN LOWEST POSITION. BED ALARM ON.
[2022-01-02 08:00] VITALS: BP 121/85
[2022-01-02] MEDS: PROSOURCE / PROSTAT (PYXIS) 30 ML UDC GT SCH (09:59)
[2022-01-02] MEDS: LEVETIRACETAM SOL (5 ML) 100 MG/ML UDC GT SCH ×2 (09:59→21:07)
[2022-01-02] MEDS: VANCOMYCIN 1 GM in IV D5W 250 ML IV SCH (09:59)
[2022-01-02] MEDS: HEPARIN SODIUM, PORCINE 5000 UNITS/1 ML VIAL SQ SCH ×2 (10:01→21:09)
[2022-01-02 10:17] LABS: BASOPHILS # (AUTO) 0.1 K/uL (0.0-0.2); BASOPHILS % (AUTO) 0.8 % (0.0-2.0); EOSINOPHILS % (AUTO) 10.6 % (0.0-6.0); HEMATOCRIT 43 % (39-51); HEMOGLOBIN 13.9 g/dL (13.5-17.5); MEAN CORPUSCULAR HGB CONC 33 g/dl (31.0-36.0); MEAN CORPUSCULAR VOLUME 96 fL (80-96); MONOCYTES % (AUTO) 7.5 % (2.0-12.0); NEUTROPHILS # (AUTO) 8.9 K/uL (1.8-8.9); NEUTROPHILS % (AUTO) 66.1 % (43.0-81.0); PLATELET COUNT (AUTO) 289 K/uL (150-450); RED BLOOD CELL COUNT(AUTO) 4.45 MIL/uL (4.5-6.0); WHITE BLOOD COUNT (AUTO) 13.4 K/uL (4.3-11.0)
[2022-01-02 12:00] VITALS: BP 124/69
[2022-01-02 16:00] VITALS: BP 128/79
[2022-01-02 17:39] LABS: BAND % (MANUAL) 2 % (0.0-5.0); EOSINOPHILS % (MANUAL) 10 % (0-4); LYMPHOCYTES % (MANUAL) 18 % (16-48); MONOCYTES % (MANUAL) 7 % (0-11.0); NEUTROPHILS % (MANUAL) 63 (42-76)
--- NOTE | 2022-01-02 19:20 | NUR ---
RN NOTE RECEIVED PATIENT IN BED WITH EYES CLOSED AND OBTUNDED, NONVERBAL.PATIENT IS ON MECHANICAL VENTILATOR WITH PRESCRIBED SETTINGS TOLERATING WELL. NO SIGNS OF PAIN, DISCOMFORT OR RESPIRATORY DISTRESS. PATIENT IS ON EXTERNAL EXCEL SPECIALIST READING SINUS RHTYM. PATIENT OXYGEN SATURATING AT 98%. PATIENT ON GTUBE FEEDING JEVITY 1.2 RUNNING AT 65ML/HR.PATIENT HAS RIGHT UPPER ARM MIDLINE PATENBT FLUSHES WELL NO SIGNS OF INFILTRATION NOTED. ALL SAFETY MEASURES IN PLACE. CALL LIGHT WITHIN REACH. SIDE RAILS UP X2.BED LOCKED IN LOWEST POSITION. BED ALARM ON HOB ELEVATED.
[2022-01-02 20:00] VITALS: BP 128/78
--- NOTE | 2022-01-02 20:24 | NUR ---
PLASTICS PRODUCTION MACHINE OPERATOR CLOSING NOTE PATIENT IN BED WITH EYES CLOSED AND OBTUNDED, NONVERBAL.PATIENT IS ON MECHANICAL WITH ORDERED VENT SETTINGS TOLERATING WELL. NO SIGNS OF PAIN, DISCOMFORT OR RESPIRATORY DISTRESS. PATIENT IS ON EXTERNAL CAUSTIC LOADER READING SINUS RHTYM. PATIENT OXYGEN SATURATING AT 100%. ALL NEEDS MET. KEPT CLEAN AND DRY. PATIENT ON GTUBE FEEDING JEVITY 1.2 RUNNING AT 65ML/HR.PATIENT HAS RIGHT UPPER ARM MIDLINE.SKIN INTACT AND PATENT. ALL SAFETY MEASURES IN PLACE. CALL LIGHT WITHIN REACH. SIDE RAILS UP X2.BED LOCKED IN LOWEST POSITION. BED ALARM ON.
[2022-01-02] MEDS: VANCOMYCIN 1.25 GM in IV D5W 250 ML IV SCH (21:56)
[2022-01-03] VITALS: BP 142/77
[2022-01-03] MEDS: ALBUTEROL FS 2.5 MG/0.5 ML VIAL.NEB NEB SCH ×4 (02:00→19:49)
[2022-01-03] MEDS: IPRATROPIUM NEB FS 0.5 MG/2.5 ML AMPUL.NEB IH SCH ×4 (02:00→19:49)
[2022-01-03 04:00] VITALS: BP 128/76
[2022-01-03] MEDS: JEVITY 1.2 CAL 1,000 ML BOTTLE GT PRN (05:02)
[2022-01-03] MEDS: CEFEPIME 2 GM in IV D5W 100 ML IV SCH ×3 (05:03→20:35)
[2022-01-03 06:47] LABS: BASOPHILS # (AUTO) 0.1 K/uL (0.0-0.2); BASOPHILS % (AUTO) 0.5 % (0.0-2.0); EOSINOPHILS % (AUTO) 11.1 % (0.0-6.0); HEMATOCRIT 39 % (39-51); HEMOGLOBIN 12.8 g/dL (13.5-17.5); LYMPHOCYTES # (AUTO) 2.2 K/uL (0.8-4.8); LYMPHOCYTES % (AUTO) 17.6 % (20.0-44.0); MEAN CORPUSCULAR HGB CONC 33 g/dl (31.0-36.0); MEAN CORPUSCULAR VOLUME 94 fL (80-96); MONOCYTES # (AUTO) 0.9 K/uL (0.1-1.30); MONOCYTES % (AUTO) 7.5 % (2.0-12.0); NEUTROPHILS # (AUTO) 7.9 K/uL (1.8-8.9); NEUTROPHILS % (AUTO) 63.3 % (43.0-81.0); PLATELET COUNT (AUTO) 302 K/uL (150-450); RED BLOOD CELL COUNT(AUTO) 4.11 MIL/uL (4.5-6.0); WHITE BLOOD COUNT (AUTO) 12.5 K/uL (4.3-11.0)
[2022-01-03 07:16] LABS: CALCIUM, SERUM 9.1 mg/dL (8.5-10.1); CREATININE 0.6 mg/dL (0.6-1.3); POTASSIUM 4.2 mmol/L (3.5-5.1)
[2022-01-03 08:00] VITALS: BP 136/74
[2022-01-03] MEDS: LEVETIRACETAM SOL (5 ML) 100 MG/ML UDC GT SCH ×2 (08:08→20:35)
[2022-01-03] MEDS: HEPARIN SODIUM, PORCINE 5000 UNITS/1 ML VIAL SQ SCH ×2 (08:09→20:36)
[2022-01-03] MEDS: PROSOURCE / PROSTAT (PYXIS) 30 ML UDC GT SCH (08:17)
[2022-01-03] MEDS: VANCOMYCIN 1.25 GM in IV D5W 250 ML IV SCH ×2 (10:19→21:20)
[2022-01-03 12:00] VITALS: BP 142/73
[2022-01-03 12:31] LABS: BILIRUBIN,URINE NEGATIVE (NEGATIVE); COLOR,URINE YELLOW (YELLOW); LEUKOCYTE ESTERASE ,URINE NEGATIVE (NEGATIVE); NITRITE, URINE NEGATIVE (NEGATIVE); PROTEIN,URINE TRACE mg/dl (NEGATIVE); UGLUCOSE NEGATIVE (NEGATIVE); UROBILINOGEN,URINE 0.2 EU/dL (0.2)
[2022-01-03 16:00] VITALS: BP 131/76
--- NOTE | 2022-01-03 19:00 | NUR ---
RN CLOSING NOTE PATIENT SLEEPING IN BED, OBTUNDED, NON-VERBAL. PATIENT ON MECHANICAL VENT, TOLERATING WELL, NO S/S OF DISTRESS OR SOB NOTED, BREATHING EVEN AND UNLABORED, SPO2: 100%. PATIENT ON EXTERNAL MEDIA ANALYTICS MANAGER READING SINUS TACHY, HR: 112. PATIENT ON GT FEEDING INFUSING JEVITY 1.2 @ 65 ML/HR. JAYLEEN MIDLINE INTACT AND PATENT, SALINE LOCKED. MEDICATIONS GIVEN ORDERED, PT NEEDS MET THROUGHOUT SHIFT, PT TURNED Q2H, WOUND CARE PROVIDED. PATIENT ON DIAPER, SAFETY MEASURES IN PLACE: CALL LIGHT WITHIN REACH, SIDE RAILS UP X 3, BED LOCKED IN LOWEST POSITION, BED ALARM ON. WILL ENDORSE TO DIE REPAIRER FORGING NURSE FOR HI.
--- NOTE | 2022-01-03 19:10 | NUR ---
RN NOTE RECEIVED PATIENT IN BED WITH EYES CLOSED AND OBTUNDED, NONVERBAL.PATIENT IS ON MECHANICAL VENTILATOR WITH PRESCRIBED SETTINGS TOLERATING WELL. NO SIGNS OF PAIN, DISCOMFORT OR RESPIRATORY DISTRESS. PATIENT IS ON EXTERNAL DAIRY FEED WORKER READING SINUS RHTYM. PATIENT OXYGEN SATURATING AT 98%. PATIENT ON GTUBE FEEDING JEVITY 1.2 RUNNING AT 65ML/HR.PATIENT HAS RIGHT UPPER ARM MIDLINE PATENT FLUSHES WELL NO SIGNS OF INFILTRATION NOTED. ALL SAFETY MEASURES IN PLACE. CALL LIGHT WITHIN REACH. SIDE RAILS UP X2.BED LOCKED IN LOWEST POSITION. BED ALARM ON HOB ELEVATED.
[2022-01-03 20:00] VITALS: BP 135/77
[2022-01-03 21:52] LABS: EOSINOPHILS % (MANUAL) 13 % (0-4); LYMPHOCYTES % (MANUAL) 17 % (16-48); MONOCYTES % (MANUAL) 10 % (0-11.0); NEUTROPHILS % (MANUAL) 57 (42-76); REACTIVE LYMPHOCYTES 3 % (0-0)
--- NOTE | 2022-01-03 23:30 | NUR ---
PT RCVD TRACHED WITH PORTEX 8 ON VENT WITH THE SETTINGS OF AC 18,,VT 450, FIO2 30%. PT IS OBTUNDED. Q6 BREATHING TX GIVEN PER MD'S ORDER. NO ADVERSE REACTION NOTED . SUCTIONED SMALL AMOUNT OF KNIGHT THICK SECRETIONS. VENT PLUGGED INTO RED OUTLET, VENT ALARMS ON AND AUDIBLE. WILL CONTINUE TO MONITOR T/O SHIFT. Addendum: 01/04/22 at 0634 by DELANEY DU RT DISREGARD THIS NOTE , WRONG PT
[2022-01-04] VITALS: BP 139/74
[2022-01-04] MEDS: ALBUTEROL FS 2.5 MG/0.5 ML VIAL.NEB NEB SCH ×4 (00:39→20:00)
[2022-01-04] MEDS: IPRATROPIUM NEB FS 0.5 MG/2.5 ML AMPUL.NEB IH SCH ×4 (00:39→20:00)
[2022-01-04 04:00] VITALS: BP 147/80
[2022-01-04] MEDS: JEVITY 1.2 CAL 1,000 ML BOTTLE GT PRN (04:14)
[2022-01-04] MEDS: CEFEPIME 2 GM in IV D5W 100 ML IV SCH ×3 (04:34→20:57)
[2022-01-04 06:48] LABS: BASOPHILS # (AUTO) 0.1 K/uL (0.0-0.2); BASOPHILS % (AUTO) 0.4 % (0.0-2.0); HEMATOCRIT 39 % (39-51); HEMOGLOBIN 13.1 g/dL (13.5-17.5); LYMPHOCYTES # (AUTO) 2.3 K/uL (0.8-4.8); LYMPHOCYTES % (AUTO) 17.7 % (20.0-44.0); MEAN CORPUSCULAR HGB CONC 34 g/dl (31.0-36.0); MEAN CORPUSCULAR VOLUME 94 fL (80-96); MONOCYTES % (AUTO) 7.5 % (2.0-12.0); NEUTROPHILS # (AUTO) 8.7 K/uL (1.8-8.9); NEUTROPHILS % (AUTO) 65.4 % (43.0-81.0); PLATELET COUNT (AUTO) 315 K/uL (150-450); RED BLOOD CELL COUNT(AUTO) 4.14 MIL/uL (4.5-6.0); WHITE BLOOD COUNT (AUTO) 13.2 K/uL (4.3-11.0)
[2022-01-04 07:06] LABS: CALCIUM, SERUM 9.1 mg/dL (8.5-10.1); CREATININE 0.6 mg/dL (0.6-1.3)
--- NOTE | 2022-01-04 07:46 | NUR ---
HOUSE REGISTRY RN OPENING NOTE RECEIVED PATIENT IN BED WITH EYES CLOSED AND OBTUNDED, NONVERBAL.PATIENT IS ON MECHANICAL WITH ORDERED VENT SETTINGS TOLERATING WELL. NO SIGNS OF PAIN, DISCOMFORT OR RESPIRATORY DISTRESS. PATIENT IS ON EXTERNAL RAG SORTER READING SINUS RHTYM. PATIENT OXYGEN SATURATING AT 100%. PATIENT ON GTUBE FEEDING JEVITY 1.2 RUNNING AT 65ML/HR.PATIENT HAS RIGHT UPPER ARM MIDLINE.SKIN INTACT AND PATENT. ALL SAFETY MEASURES IN PLACE. CALL LIGHT WITHIN REACH. SIDE RAILS UP X2.BED LOCKED IN LOWEST POSITION. BED ALARM ON.
[2022-01-04 08:00] VITALS: BP 140/82
--- NOTE | 2022-01-04 08:00 | NUR ---
RT NOTE: PT RECEIVED STABLE UNABLE TO FOLLOW COMMANDS. PT VENT IS PLUGGED INTO RED OUTLET. BAG AND MASK AT BEDSIDE AND SPARE TRACH. BILAT BREATH SOUNDS AND CHEST RISE OBSERVED. PT SHOWS NO SIGNS OF DISTRESS. VENT ALARMS ARE ON AND AUDIBLE. PT TRACH IS PATENT AND SECURE WILL CONTINUE CURRENT THERAPY.
[2022-01-04] MEDS: PROSOURCE / PROSTAT (PYXIS) 30 ML UDC GT SCH (08:07)
[2022-01-04] MEDS: LEVETIRACETAM SOL (5 ML) 100 MG/ML UDC GT SCH ×2 (08:07→20:57)
[2022-01-04] MEDS: HEPARIN SODIUM, PORCINE 5000 UNITS/1 ML VIAL SQ SCH ×2 (08:10→20:58)
[2022-01-04] MEDS: VANCOMYCIN 1.25 GM in IV D5W 250 ML IV SCH (10:00)
[2022-01-04 12:00] VITALS: BP 146/85
[2022-01-04] MEDS ORDERED: LEVE100S GT (14:16)
[2022-01-04] MEDS ORDERED: ALBU2.5V13 NEB ×2 (14:16)
[2022-01-04] MEDS ORDERED: ACET325T53 PO (14:16)
[2022-01-04] MEDS ORDERED: IPRA0.2S9 IH (14:16)
[2022-01-04] MEDS ORDERED: VANC1.2526 IV (14:16)
[2022-01-04] MEDS ORDERED: Prosource GT (14:16)
[2022-01-04] MEDS ORDERED: LACT-209 GT (14:16)
[2022-01-04] MEDS ORDERED: CEFE2FRO IV (14:16)
[2022-01-04] MEDS: VANCOMYCIN 1 GM in IV D5W 250ml IV SCH ×2 (16:09→22:16)
[2022-01-04 16:15] VITALS: BP 134/76
--- NOTE | 2022-01-04 17:12 | NUR ---
insurance called no RT today set up for [facility] at 10am new trip #[id number] spoke w/ Buck.CM notified .
--- NOTE | 2022-01-04 18:43 | NUR ---
RN CLOSING NOTE PATIENT SLEEPING IN BED, OBTUNDED, NON-VERBAL. PATIENT ON MECHANICAL VENT, TOLERATING WELL, NO S/S OF DISTRESS OR SOB NOTED, BREATHING EVEN AND UNLABORED, SPO2: 100%. PATIENT ON EXTERNAL SHAFT HEADMAN READING SINUS TACHY, HR: 110. PATIENT ON GT FEEDING INFUSING JEVITY 1.2 @ 65 ML/HR. JAYLEEN MIDLINE INTACT AND PATENT, SALINE LOCKED. MEDICATIONS GIVEN ORDERED, PT NEEDS MET THROUGHOUT SHIFT, PT TURNED Q2H, WOUND CARE PROVIDED.SAFETY MEASURES IN PLACE: CALL LIGHT WITHIN REACH, SIDE RAILS UP X 3, BED LOCKED IN LOWEST POSITION, BED ALARM ON. WILL ENDORSE TO PRACTICE ADVISOR NURSE FOR HI.
--- NOTE | 2022-01-04 19:20 | NUR ---
RN NOTE RECEIVED PATIENT IN BED WITH EYES CLOSED AND OBTUNDED, NONVERBAL.PATIENT IS ON MECHANICAL VENTILATOR WITH PRESCRIBED SETTINGS TOLERATING WELL. NO SIGNS OF PAIN, DISCOMFORT OR RESPIRATORY DISTRESS. PATIENT IS ON EXTERNAL SUPERINTENDENT FISH HATCHERY READING SINUS RHYTHM. PATIENT OXYGEN SATURATING AT 98%. PATIENT ON GTUBE FEEDING JEVITY 1.2 RUNNING AT 65ML/HR.PATIENT HAS RIGHT UPPER ARM MIDLINE PATENT FLUSHES WELL NO SIGNS OF INFILTRATION NOTED. ALL SAFETY MEASURES IN PLACE. CALL LIGHT WITHIN REACH. SIDE RAILS UP X2.BED LOCKED IN LOWEST POSITION. BED ALARM ON HOB ELEVATED.
[2022-01-04 20:00] VITALS: BP 149/77
[2022-01-05] VITALS: BP 149/77
[2022-01-05] MEDS: ALBUTEROL FS 2.5 MG/0.5 ML VIAL.NEB NEB SCH ×2 (01:43→07:35)
[2022-01-05] MEDS: IPRATROPIUM NEB FS 0.5 MG/2.5 ML AMPUL.NEB IH SCH ×2 (01:43→07:35)
[2022-01-05 04:00] VITALS: BP 139/88
[2022-01-05] MEDS: CEFEPIME 2 GM in IV D5W 100 ML IV SCH (04:45)
[2022-01-05] MEDS: VANCOMYCIN 1 GM in IV D5W 250ml IV SCH (06:15)
[2022-01-05 06:56] LABS: BASOPHILS # (AUTO) 0.1 K/uL (0.0-0.2); BASOPHILS % (AUTO) 0.5 % (0.0-2.0); EOSINOPHILS % (AUTO) 8.8 % (0.0-6.0); HEMATOCRIT 37 % (39-51); HEMOGLOBIN 12.4 g/dL (13.5-17.5); LYMPHOCYTES # (AUTO) 2.3 K/uL (0.8-4.8); LYMPHOCYTES % (AUTO) 17.8 % (20.0-44.0); MEAN CORPUSCULAR HGB CONC 34 g/dl (31.0-36.0); MEAN CORPUSCULAR VOLUME 95 fL (80-96); MONOCYTES # (AUTO) 0.8 K/uL (0.1-1.30); MONOCYTES % (AUTO) 6.1 % (2.0-12.0); NEUTROPHILS # (AUTO) 8.6 K/uL (1.8-8.9); NEUTROPHILS % (AUTO) 66.8 % (43.0-81.0); PLATELET COUNT (AUTO) 287 K/uL (150-450); RED BLOOD CELL COUNT(AUTO) 3.91 MIL/uL (4.5-6.0); WHITE BLOOD COUNT (AUTO) 12.9 K/uL (4.3-11.0)
--- NOTE | 2022-01-05 07:20 | NUR ---
RN OPENING NOTE RECEIVED PATIENT IN BED WITH EYES CLOSED AND OBTUNDED, NONVERBAL.PATIENT IS ON MECHANICAL VENTILATOR WITH ORDERED SETTINGS TOLERATING WELL. NO SIGNS OF PAIN, DISCOMFORT OR RESPIRATORY DISTRESS. PATIENT IS ON TELE MONITOR READING SINUS RHYTHM. PATIENT OXYGEN SATURATING AT 99%. PATIENT ON GTUBE FEEDING JEVITY 1.2 RUNNING AT 65ML/HR. GTUBE INTACT AND PATENT. PATIENT HAS RIGHT UPPER ARM MIDLINE PATENT FLUSHES WELL, INTACT AND PATENT. ALL SAFETY MEASURES IN PLACE. CALL LIGHT WITHIN REACH. SIDE RAILS UP X2.BED LOCKED IN LOWEST POSITION. BED ALARM ON HOB ELEVATED.
[2022-01-05 07:23] LABS: CALCIUM, SERUM 9.2 mg/dL (8.5-10.1); CREATININE 0.6 mg/dL (0.6-1.3); POTASSIUM 3.8 mmol/L (3.5-5.1)
[2022-01-05] MEDS ORDERED: GLUCERNA 1.2 1,000 ML BOTTLE GT PRN (07:30)
[2022-01-05 08:00] VITALS: BP 166/79
[2022-01-05] MEDS: PROSOURCE / PROSTAT (PYXIS) 30 ML UDC GT SCH (08:08)
[2022-01-05] MEDS: LEVETIRACETAM SOL (5 ML) 100 MG/ML UDC GT SCH (08:08)
[2022-01-05] MEDS: HEPARIN SODIUM, PORCINE 5000 UNITS/1 ML VIAL SQ SCH (08:09)
--- NOTE | 2022-01-05 12:00 | NUR ---
gave report to emt, and Laurence GUPTA at [facility]. patient stable condition. kept iv due to patient continuing to get antibiotics. patient discharged
== END 2022-01-05 12:03 | DRG 130 ==
LOC: ER 19:17 → TELE-TD 23:20 → TELE1 12-27 11:01
PROVIDERS: ADMIT Internal Medicine; ATTEND Nurse Practitioner Acute Care
PROC: 5A1955Z Respiratory Ventilation, Greater than 96 Consecutive Hours (ICD-10-PCS; principal; 2021-12-26)
PROC: 05H533Z Insertion of Infusion Device into Right Subclavian Vein, Percutaneous Approach (ICD-10-PCS; 2021-12-28)
PROC: B546ZZA Ultrasonography of Right Subclavian Vein, Guidance (ICD-10-PCS; 2021-12-28)
DX: J95.851 Ventilator associated pneumonia (principal); R65.20 Severe sepsis without septic shock; A41.9 Sepsis, unspecified organism; J96.21 Acute and chronic respiratory failure with hypoxia; G93.1 Anoxic brain damage, not elsewhere classified; R53.2 Functional quadriplegia; L89.156 Pressure-induced deep tissue damage of sacral region; E86.0 Dehydration; Z99.11 Dependence on respirator [ventilator] status; J15.9 Unspecified bacterial pneumonia; E87.6 Hypokalemia; I10 Essential (primary) hypertension; J98.11 Atelectasis; R13.10 Dysphagia, unspecified; Z20.822 Contact with and (suspected) exposure to COVID-19; Z86.73 Personal history of transient ischemic attack (TIA), and cerebral infarction without residual deficits; Z93.1 Gastrostomy status; R56.9 Unspecified convulsions; Y83.3 Surgical operation with formation of external stoma as the cause of abnormal reaction of the patient, or of later complication, without mention of misadventure at the time of the procedure; Y92.129 Unspecified place in nursing home as the place of occurrence of the external cause; L30.8 Other specified dermatitis
CPT/HCPCS: 31720; 36415; 36600; 71045-TC; 80048-TC; 80053-TC; 80076-TC; 80202-TC; 82803-TC; 83605-TC; 83735-TC; 83880; 84100-TC; 84484-TC; 85025-TC; 85730-TC; 87040-TC; 87086-TC; 94002-TC; 94003-TC; 94760-TC; 94762-TC; 94799-TC; A4349; A4623; A7526; C9803; G0378; J0692; J1644; J1953; J2270; J3370; J3490; J7030; J7050; J7060

== ENCOUNTER 2022-01-13 23:11 | Emergency (ER) | payer MEDICAID ==
[~2022-01-13] VITALS: Ht 172.7 cm; Wt 81.6 kg
[~2022-01-13 23:11] MED LIST: ACET325T53 PO; ALBU2.5V13 NEB; BISA10SU11 RC; CEFE2FRO IV; CLON0.1T GT; HEPARIN SUBCUT; IPRA0.2S9 IH; LACT-209 GT; LACT250L14 GT; LEVE1000 GT; LEVE100S GT; MAGN400O6 GT; NA P133E RC; OMEG1600 GT; Prosource GT; VANC1.2526 IV
--- NOTE | 2022-01-13 23:20 | NUR ---
EMT AT PT'S BEDSIDE FOR EKG
--- NOTE | 2022-01-13 23:20 | NUR ---
RT AT PT'S BEDSIDE FOR VENT SETTINGS
--- NOTE | 2022-01-13 23:21 | NUR ---
VENT SETTINGS: FIO2 50% VT 550 PEEP 5 SATTING AT 100%
--- NOTE | 2022-01-13 23:21 | NUR ---
RT NOTE PATIENT RECEIVED FROM AMBULANCE FOR SOB AND HYPOXIA. PT PLACED ON MECH VENT ON AC 18,550, 40% +5 GIVEN BY AMBULANCE. VIA POTEX 9 TRACH TUBE. PT SX/D AND ALARMS ARE SET AND AUDIBLE. ABG DONE AND FIO2 TITRATED PER MD.
--- NOTE | 2022-01-13 23:29 | NUR ---
[employer] TECHNICAL OFFICER AT PT'S BEDSIDE
--- NOTE | 2022-01-13 23:33 | NUR ---
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
[2022-01-13 23:54] LABS: BASOPHILS # (AUTO) 0.1 K/uL (0.0-0.2); BASOPHILS % (AUTO) 0.7 % (0.0-2.0); HEMATOCRIT 45 % (39-51); HEMOGLOBIN 14.6 g/dL (13.5-17.5); LYMPHOCYTES # (AUTO) 3.2 K/uL (0.8-4.8); LYMPHOCYTES % (AUTO) 23.5 % (20.0-44.0); MEAN CORPUSCULAR HGB CONC 33 g/dl (31.0-36.0); MEAN CORPUSCULAR VOLUME 96 fL (80-96); MONOCYTES % (AUTO) 7.6 % (2.0-12.0); NEUTROPHILS # (AUTO) 6.9 K/uL (1.8-8.9); NEUTROPHILS % (AUTO) 51.2 % (43.0-81.0); PLATELET COUNT (AUTO) 314 K/uL (150-450); RED BLOOD CELL COUNT(AUTO) 4.67 MIL/uL (4.5-6.0); WHITE BLOOD COUNT (AUTO) 13.5 K/uL (4.3-11.0)
[2022-01-14 00:12] LABS: CALCIUM, SERUM 9.6 mg/dL (8.5-10.1); CREATININE 0.7 mg/dL (0.6-1.3); POTASSIUM 4.4 mmol/L (3.5-5.1)
[2022-01-14 01:02] LABS: ABG BASE EXCESS -1.4 mmol/L; ABG PCO2 26.3 mmHg (35.0-45.0); ABG PH 7.501 (7.350-7.450); ABG PO2 177.7 mmHg (75.0-100.0); COHb 0.3 % (0.5-1.5); MetHb 0.4 % (0.0-1.5); O2Hb 98.7 % (94.0-97.0); PEEP,BG 5 cm H2O; SITE, ABG Right Radial; VT, ABG 550 mL
--- NOTE | 2022-01-14 01:12 | NUR ---
REPORT GIVEN TO CANDY MARQUEZ
--- NOTE | 2022-01-14 01:16 | NUR ---
[facility] ETA 8AM
--- NOTE | 2022-01-14 04:18 | NUR ---
PATIENT RESTING COMFORTABLY ON MONITOR, PROVIDED WARM BLANKETS.
--- NOTE | 2022-01-14 05:46 | NUR ---
RT AT PATIENT BEDSIDE
--- NOTE | 2022-01-14 06:27 | NUR ---
CALL FROM [facility]. NEW ETA 1000
--- NOTE | 2022-01-14 10:20 | NUR ---
REPORT GIVEN TO EMS/RN AT BEDSIDE.
[2022-01-14 10:21] VITALS: BP 131/77
== END 2022-01-14 10:22 ==
LOC: ER 23:12
DX: R09.02 Hypoxemia (principal); I10 Essential (primary) hypertension; Z88.8 Allergy status to other drugs, medicaments and biological substances; Z79.899 Other long term (current) drug therapy
CPT/HCPCS: 36415; 36600; 71045-TC; 80048-TC; 82803-TC; 85025-TC; 94002-TC; 94799-TC